=== PATIENT | male | born 1990 | race Caucasian/White ===

== ENCOUNTER 2018-06-10 08:07 | Emergency (ER) | payer BC, SELFPAY ==
[2018-06-10 08:12] VITALS: BP 146/96; PULSE 76; RESP 15; TEMP 36.8; O2SAT 98
--- NOTE | 2018-06-10 08:29 | W.ED.GENAD ---
Discharge Plan Disposition Patient Disposition: HOME Condition: Improving Discharge Details Chief Complaint: Nk/Back Pain Clinical Impression: Acute right-sided back pain with sciatica Primary Care Provider: Unknown,Unknown ED Provider: Provider,Temporary Home Meds and New Rx's Prescriptions: No Action No Known Home Meds RF: 0 Discharge Instructions Instructions: Back Pain (ED) Additional Instructions: Return for increasing numbness, weakness, change to urine pattern. Please follicle up with physical therapy as prescribed. Please take medications as prescribed. Remove the Lidoderm patch this evening. May use topical treatments as we discussed. May also take Tylenol and/or ibuprofen as needed for pain. The next dose of ibuprofen would be in 6 hours. Stand Alone Forms: Physical Therapy Referral Medical Decision Making 28-year-old male presents with fairly classic symptoms of L5-S1 sciatica. He does not have motor weakness or urinary changes. Mild subjective diminished sensation in the S1 dermatome. Otherwise unremarkable exam. Discussed with him that we will place him on a burst of steroids, he was given a parenteral dose of ketorolac in the ER, Lidoderm patch was placed. I will refer him to physical therapy. 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 Return precautions were discussed with the patient and his partner prior to discharge HPI General Mode of arrival: ambulatory. Date/Time Provider Initiated Documentation: 06/10/18 08:14. Limitations to Documentation: no limitations. Information obtained by: patient. History of Present Illness 28 year old M presents to the emergency department with the chief complaint of Right low back pain over days time, worse since driving, described as moderate, Quality is described as aching, and is localized to the back and right. Patient distal. Patient started experiencing this day(s) and it has been constant. other things that improve symptom(s), (Standing) Other factors that worsen symptoms (Sitting) . Patient notes other (No motor weakness. No change to urine). Patient did receive the following treatments prior to arrival, NSAID Related Data Home Medications Medication Instructions Recorded Confirmed Unknown [No Known Home Meds] 06/10/18 06/10/18 Allergies Allergy/AdvReac Type Severity Reaction Status Date / Time No Known Allergies Allergy Unverified 06/10/18 08:16 General Stated Complaint: Nk/Back Pain WILL: 4 Review of Systems Review of Systems 6 systems reviewed and otherwise neg PFSH Social History Smoking/Tobacco Use Status: Current every day Exam Narrative Exam Narrative: GEN: awake, alert, oriented 3. Pleasant, well groomed, interactive. HEAD: Normocephalic, atraumatic ENT: Mucous membranes moist, oropharynx unremarkable, External ear exam unremarkable EYES: PERRL, EOMI NECK: Full ROM, no SUZAN, no menigismus CHEST/RESP: Nontender, clear to auscultation bilateral, no wheeze/rhonchi/rales CARDIOVASCULAR: RRR, no murmur, rub onofre. 2+ Rad pulse bilateral ABDOMEN: Soft, nontender, no mass. +Bowel sounds Back: Right SI joint tenderness to palpation. EXT: Full ROM, no edema, no rash. Subjectively diminished sensation right lateral foot. Sensation is intact throughout. Patellar reflex 2+ bilaterally. Ankle reflex 1+ bilaterally. Plantar dorsiflexion and inversion eversion of the foot is graded 5 out of 5 bilaterally. Saddle distribution sensation intact. Neuro: Grossly normal neurologic exam, conversant, interactive. Psych: Speech fluent, thoughts congruent, affect normal Course Vital Signs Temperature 36.8 C 06/10/18 08:12 Pulse 76 06/10/18 08:12 Respiratory Rate 15 06/10/18 08:12 Blood Pressure 146/96 H 06/10/18 08:12 Pulse Oximetry 98 06/10/18 08:12 Temperature 36.8 C 06/10/18 08:12 Temperature Source Temporal Artery Scan 06/10/18 08:12 Pulse 76 06/10/18 08:12 Respiratory Rate 15 06/10/18 08:12 Respiratory Effort Non-Labored 06/10/18 08:15 Blood Pressure 146/96 H 06/10/18 08:12 Blood Pressure Position Standing 06/10/18 08:12 Pulse Oximetry 98 06/10/18 08:12 Oxygen Delivery Method Room Air 06/10/18 08:12 Oxygen Flow Rate 0 06/10/18 08:12 Pain Level 2 06/10/18 08:17
--- NOTE | 2018-06-10 08:34 | ED.GENADUL_ITS ---
Discharge Plan Disposition Patient Disposition: HOME Condition: Improving Discharge Details Chief Complaint: Nk/Back Pain Clinical Impression: Acute right-sided back pain with sciatica Primary Care Provider: Unknown,Unknown ED Provider: Provider,Temporary Home Meds and New Rx's Prescriptions: No Action No Known Home Meds RF: 0 Discharge Instructions Instructions: Back Pain (ED) Additional Instructions: Return for increasing numbness, weakness, change to urine pattern. Please follicle up with physical therapy as prescribed. Please take medications as prescribed. Remove the Lidoderm patch this evening. May use topical treatments as we discussed. May also take Tylenol and/or ibuprofen as needed for pain. The next dose of ibuprofen would be in 6 hours. Stand Alone Forms: Physical Therapy Referral Medical Decision Making 28-year-old male presents with fairly classic symptoms of L5-S1 sciatica. He does not have motor weakness or urinary changes. Mild subjective diminished sensation in the S1 dermatome. Otherwise unremarkable exam. Discussed with him that we will place him on a burst of steroids, he was given a parenteral dose of ketorolac in the ER, Lidoderm patch was placed. I will refer him to physical therapy. 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 Return precautions were discussed with the patient and his partner prior to discharge HPI General Mode of arrival: ambulatory . Date/Time Provider Initiated Documentation: 06/10/18 08:14 . Limitations to Documentation: no limitations . Information obtained by: patient . History of Present Illness 28 year old M presents to the emergency department with the chief complaint of Right low back pain over days time, worse since driving, described as moderate, Quality is described as aching, and is localized to the back and right. Patient distal. Patient started experiencing this day(s) and it has been constant. other things that improve symptom(s), (Standing) Other factors that worsen symptoms (Sitting) . Patient notes other (No motor weakness. No change to urine). Patient did receive the following treatments prior to arrival, NSAID Related Data Home Medications Medication Instructions Recorded Confirmed Unknown [No Known Home Meds] 06/10/18 06/10/18 Allergies Allergy/AdvReac Type Severity Reaction Status Date / Time No Known Allergies Allergy Unverified 06/10/18 08:16 General Stated Complaint: Nk/Back Pain WILL: 4 Review of Systems Review of Systems 6 systems reviewed and otherwise neg PFSH Social History Smoking/Tobacco Use Status: Current every day Exam Narrative Exam Narrative: GEN: awake, alert, oriented 3. Pleasant, well groomed, interactive. HEAD: Normocephalic, atraumatic ENT: Mucous membranes moist, oropharynx unremarkable, External ear exam unremarkable EYES: PERRL, EOMI NECK: Full ROM, no SUZAN, no menigismus CHEST/RESP: Nontender, clear to auscultation bilateral, no wheeze/rhonchi/rales CARDIOVASCULAR: RRR, no murmur, rub onofre. 2+ Rad pulse bilateral ABDOMEN: Soft, nontender, no mass. +Bowel sounds Back: Right SI joint tenderness to palpation. EXT: Full ROM, no edema, no rash. Subjectively diminished sensation right lateral foot. Sensation is intact throughout. Patellar reflex 2+ bilaterally. Ankle reflex 1+ bilaterally. Plantar dorsiflexion and inversion eversion of the foot is graded 5 out of 5 bilaterally. Saddle distribution sensation intact. Neuro: Grossly normal neurologic exam, conversant, interactive. Psych: Speech fluent, thoughts congruent, affect normal Course Vital Signs Temperature 36.8 C 06/10/18 08:12 Pulse 76 06/10/18 08:12 Respiratory Rate 15 06/10/18 08:12 Blood Pressure 146/96 H 06/10/18 08:12 Pulse Oximetry 98 06/10/18 08:12 Temperature 36.8 C 06/10/18 08:12 Temperature Source Temporal Artery Scan 06/10/18 08:12 Pulse 76 06/10/18 08:12 Respiratory Rate 15 06/10/18 08:12 Respiratory Effort Non-Labored 06/10/18 08:15 Blood Pressure 146/96 H 06/10/18 08:12 Blood Pressure Position Standing 06/10/18 08:12 Pulse Oximetry 98 06/10/18 08:12 Oxygen Delivery Method Room Air 06/10/18 08:12 Oxygen Flow Rate 0 06/10/18 08:12 Pain Level 2 06/10/18 08:17
[2018-06-10] MEDS: Ketorolac 30 MG/ML VIAL 60 MG IM (08:36)
[2018-06-10] MEDS: Lidocaine 5% Patch 1 PATCH TP (08:37)
== END 2018-06-10 08:46 | disposition home or self-care (01) ==
PROVIDERS: Emergency Provider Emergency Medicine
DX: M54.41 Lumbago with sciatica, right side (principal)
CPT/HCPCS: 96372; 99284; 99283

== ENCOUNTER 2019-12-04 21:52 | Outpatient (REF) | payer BC, SELFPAY ==
[2019-12-04 20:18] LABS: HCT 42.7 % (40.0-50.0); HGB 14.8 g/dL (13.5-17.5); Mean Corp. HGB Concentration 34.7 g/dL (32.0-36.0); Mean Corpuscular Hemoglobin 28.5 pg (27.0-33.0); Mean Corpuscular Volume 82.3 fL (80-95); Mean Platelet Volume 11.4 fL (8.0-11.0); RBC 5.19 m/cumm (4.50-6.00); White Blood Cell Count 2.99 k/cumm (4.4-10.8)
[2019-12-04 20:54] LABS: Platelet Count 73 x1000/uL (130-400)
[2019-12-05 11:51] LABS: Absolute Monocyte Count 0.27 k/cumm (0.11-0.7); Absolute Neutrophil Count 0.99 k/cumm (1.2-6.7); Atypical Lymphocytes % 7
[2019-12-05 11:53] LABS: Diff Comment Manual Differential; RBC Morphology Normal
[2019-12-05 14:47] LABS: Abs Immature Grans 0.03 k/cumm (0.0-0.09)
[2019-12-06 20:35] LABS: COVID-19 RT-PCR UVMMC Result Negative (Negative)
[2019-12-07 10:32] LABS: Lyme Ab w Rflx to Lyme Confirm Negative (Negative)
[2019-12-07 19:28] LABS: Anaplasma phagocytophilum Positive (Negative); B. miyamotoi PCR Negative (Negative); Babesia divergens/MO-1 Negative (Negative); Babesia duncani Negative (Negative); Babesia microti Negative (Negative); Ehrlichia chaffeensis Negative (Negative); Ehrlichia ewingii/canis Negative (Negative); Ehrlichia muris eauclairensis Negative (Negative)
== END 2019-12-04 22:12 ==
LOC: NCHCN 21:52
PROVIDERS: Visit Provider Nurse Practitioner Family
DX: R50.9 Fever, unspecified (principal)
CPT/HCPCS: 85027; 87798; U0003; 85007; 86618

== ENCOUNTER 2019-12-24 16:41 | Outpatient (REF) | payer BC, SELFPAY ==
[2019-12-24 20:50] LABS: HCT 42.3 % (40.0-50.0); HGB 14.5 g/dL (13.5-17.5); Mean Corp. HGB Concentration 34.3 g/dL (32.0-36.0); Mean Corpuscular Hemoglobin 28.6 pg (27.0-33.0); Mean Corpuscular Volume 83.4 fL (80-95); Mean Platelet Volume 9.9 fL (8.0-11.0); Platelet Count 222 x1000/uL (130-400); RBC 5.07 m/cumm (4.50-6.00); RBC Distribution Width 12.7 % (11.8-14.1); White Blood Cell Count 6.99 k/cumm (4.4-10.8)
[2019-12-24 21:36] LABS: Anion Gap 8.8 mmol/L (3-11); BUN 14 mg/dL (7-18); CO2 28.2 mmol/L (21.0-32.0); CREATININE 0.95 mg/dL (0.70-1.30); Chloride 102 mmol/L (98-107); Cholesterol 182 mg/dL (<200); Glucose 109 mg/dL (74-106); HDL Cholesterol 31 mg/dL (40-60); Sodium 139 mmol/L (136-145); Triglyceride 490 mg/dL (<150)
[2019-12-24 22:07] LABS: LDL CHOLESTEROL 109 mg/dL (<100)
== END 2019-12-24 17:01 ==
LOC: NCHCN 16:41
PROVIDERS: Visit Provider Family Medicine
DX: D72.819 Decreased white blood cell count, unspecified (principal); Z00.00 Encounter for general adult medical examination without abnormal findings; R50.9 Fever, unspecified; Z13.220 Encounter for screening for lipoid disorders
CPT/HCPCS: 80048; 80061; 83721; 85027

== ENCOUNTER 2020-09-27 08:54 | Emergency (ER) | payer OTHER, SELFPAY ==
[2020-09-27 08:59] VITALS: BP 147/84; PULSE 99; RESP 16; TEMP 36.6; O2SAT 98
--- NOTE | 2020-09-27 09:56 | ED.GENADUL_ITS ---
Discharge Plan Disposition Patient Disposition: HOME Condition: Stable Discharge Details Clinical Impression: Acute low back pain with sciatica Primary Care Provider: Michael Mosquera ED Provider: Corinna Fortune Home Meds and New Rx's Prescriptions: New methocarbamol 500 mg tablet 500 mg PO Q6H PRN (Reason: muscle spasm) Qty: 14 RF: 0 prednisone 20 mg tablet See Rx Instructions .ROUTE .COMPLEX Qty: 12 RF: 0 Discharge Instructions Instructions: Sciatica (ED), Lower Back Exercises (ED) Additional Instructions: Alternate ice and heat to the affected area(s) several times daily for 20 minutes at a time. Your prescriptions have been sent electronically to your pharmacy. Call the pharmacy to make sure your prescriptions are ready before pickup. Take the prescriptions as directed. Follow-up with your primary care doctor in 1 week. Return to the emergency department with any worsening or new concerning symptoms. Discharge Data Discharge Date/Time-TO BE ENTERED AT DEPARTURE: 09/27/20 10:34 Discharge Physician: Corinna Fortune Medical Decision Making 30-year-old male with a history of sciatica presents with left lower back pain with radiation to his left buttock and down the back of his leg to his foot for the past few days. Vitals within normal limits. Patient is standing in the room and appears slightly uncomfortable. He has tenderness palpation to his left SI joint. Back normal to inspection. Neurovascularly intact. Hypoactive reflexes throughout. Differential diagnosis includes lumbar strain, sciatica, disc herniation, spinal stenosis, arthritis, lumbar radiculopathy. Patient appears nontoxic and has no cauda equina symptoms or focal deficits. He was given an IM injection of Toradol and p.o. prednisone and Valium. Do not see an indication for labs or imaging at this time. Patient advised to alternate ice and heat. Prescriptions for methocarbamol and prednisone sent electronically to his pharmacy. Advised to follow up with the primary care doctor for re-evaluation. Usual and customary return precautions given prior to discharge. Medical Records Medical records reviewed: Yes I reviewed the patient's medical records. HPI General Mode of arrival: ambulatory . Date/Time Provider Initiated Documentation: 09/27/20 09:36 . Limitations to Documentation: no limitations . Information obtained by: patient . HPI Narrative: Patient is a 30-year-old male who presents to the ED with complaint of back pain for the past 3 days with radiation down his left leg to his foot. He does admit to intermittent tingling in his left leg and foot. 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 He states he was at urgent care for this in the past few days and was given ibuprofen and Flexeril without relief. He states his last dose of ibuprofen was 3 AM this morning without relief. He states his pain is worse with movement and most specifically when bending forward. He states the pain radiates from his left lower back into his buttock down the back of his leg to his foot. He denies any fever, abdominal pain, urinary symptoms, bowel or bladder incontinence, or leg weakness. Related Data Home Medications Medication Instructions Recorded Confirmed methocarbamol 500 mg PO Q6H PRN #14 tab 09/27/20 prednisone See Rx Instructions .ROUTE 09/27/20 .COMPLEX #12 tab Previous Rx's Medication Instructions Recorded methocarbamol 500 mg PO Q6H PRN #14 tab 09/27/20 prednisone See Rx Instructions .ROUTE 09/27/20 .COMPLEX #12 tab Allergies Allergy/AdvReac Type Severity Reaction Status Date / Time No Known Allergies Allergy Unverified 09/27/20 09:05 General Stated Complaint: Nk/Back Pain WILL: 3 Review of Systems All systems reviewed & are unremarkable except as noted in HPI and below Constitutional Constitutional: Reports as per HPI, Denies chills and Denies fever(s) Eyes Eyes: Denies blurry vision ENT Ears, Nose, Mouth, and Throat: Denies dizziness, Denies sore throat and Denies throat swelling Cardiovascular Cardiovascular: Denies chest pain and Denies dyspnea Respiratory Respiratory: Denies cough and Denies dyspnea Gastrointestinal Gastrointestinal: Denies abdominal pain, Denies diarrhea and Denies vomiting Genitourinary Genitourinary: Denies hematuria and Denies dysuria Musculoskeletal Musculoskeletal: Reports back pain and Denies numbness Integumentary/Breasts Skin/Breast: Denies lesions and Denies rash Neurologic Neurologic: Denies dizziness, Denies localized weakness and Denies numbness Allergic/Immunologic Allergic/Immunologic: Denies throat swelling [facility] Medical History (Updated 09/27/20 @ 10:21 by Corinna Fortune DO) No significant past medical history Surgical History (Updated 09/27/20 @ 10:21 by Corinna Fortune DO) No significant past surgical history Social History Smoking/Tobacco Use Status: Current every day Tobacco Type: smokeless tobacco Smoking risk assessment performed?: Yes Drug use: Never Substance use type: does not use Exam Const General: cooperative, healthy appearing and no acute distress HENMT Head: normal to inspection Face and sinus: normal facial exam Eyes General: appearance normal, both eyes and all related structures EOM: EOM intact bilaterally Neck Neck: normal visual inspection and No submandibular swelling Lymphatic: no lymphadenopathy noted Chest Chest: normal inspection of the chest and no tenderness Resp Effort & Inspection: normal respiratory effort and able to speak in complete sentences Auscultation: clear to auscultation bilaterally Cardio Rate: regular rate Rhythm: regular rhythm GI Inspection: normal to inspection Palpation: soft, not firm, not rigid and nontender Auscultation: normal bowel sounds Back/Spine/Pelvis Thoracic/Lumbar Spine: thoracic and lumbar spine normal to inspection, straight leg raise negative bilaterally and No lumbar spinal tenderness Pelvis: no pain with anterior-posterior compression Sacroiliac joints: on the left tender to palpation Sacrum: no ecchymosis, no erythema, no swelling and no tenderness Coccyx: no swelling and no tenderness Skin General skin exam: no rashes or lesions noted Neuro General: patient alert, patient awake and patient oriented x3 Cognition: normal cognition Speech: speech normal Motor: muscle tone normal throughout and strength 5/5 throughout Sensory Exam: no sensory deficits noted DTR's: Rt Patellar: 0, Lt Patellar: 0, Rt Ankle: 0 and Lt Ankle: 0 Plantar Reflexes: Equivocal: bilateral (negative babinski b/l ) Other: B/L DP/PT pulses intact. Extrem General: normal to inspection, full ROM, capillary refill normal, no calf tenderness bilaterally and no edema Psych Appearance: grossly normal Mental Status: mental status grossly normal Speech and Movement: speech and movement normal Affect: normal affect Course Vital Signs Vital signs: Vital Signs Temperature 97.9 F 09/27/20 08:59 Pulse 99 H 09/27/20 08:59 Respiratory Rate 16 09/27/20 08:59 Blood Pressure 147/84 H 09/27/20 08:59 Pulse Oximetry 98 09/27/20 08:59 Temperature 97.9 F 09/27/20 08:59 Temperature Source Skin 09/27/20 08:59 Pulse 99 H 09/27/20 08:59 Respiratory Rate 16 09/27/20 08:59 Respiratory Effort Non-Labored 09/27/20 08:59 Blood Pressure 147/84 H 09/27/20 08:59 Blood Pressure Position Sitting 09/27/20 08:59 Pulse Oximetry 98 09/27/20 08:59 Oxygen Delivery Method Room Air 09/27/20 08:59 Oxygen Flow Rate 0 09/27/20 08:59 Pain Level 6 09/27/20 09:06
[2020-09-27] MEDS: predniSONE 20 MG TAB 60 MG PO (10:08)
[2020-09-27] MEDS: Ketorolac 60 MG/2 ML VIAL IM (10:08)
[2020-09-27] MEDS: diazePAM 5 MG TAB PO (10:08)
[2020-09-27 10:35] VITALS: BP 116/51; PULSE 64; RESP 16; TEMP 36.6; O2SAT 99
== END 2020-09-27 10:34 | disposition home or self-care (01) ==
PROVIDERS: Emergency Provider Physician Assistant; PCP Internal Medicine
DX: M54.42 Lumbago with sciatica, left side (principal)
CPT/HCPCS: 96372; 99284; 99283; J1885; J7512

== ENCOUNTER 2023-02-16 16:50 | Emergency (ER) | payer BC, SELFPAY ==
[2023-02-16 16:51] VITALS: BP 134/96; PULSE 76; RESP 16; TEMP 36.4; O2SAT 99
[2023-02-16 16:52] VITALS: BP 146/95; PULSE 61; RESP 14; TEMP 36.7; O2SAT 98
[2023-02-16] MEDS: oxyCODONE 5 mg/Acetaminophen 325 mg TAB 2 TAB PO (18:00)
[2023-02-16] MEDS: predniSONE 20 MG TAB 40 MG PO (18:00)
[2023-02-16 18:04] VITALS: BP 142/7; PULSE 78; RESP 18; TEMP 36.6; O2SAT 98
--- NOTE | 2023-02-16 18:06 | NUR.NOTE ---
Nursing Note: Pt discharged by this nurse, was not the primary nurse
--- NOTE | 2023-02-16 21:58 | ED.GENADUL_ITS ---
Discharge Plan Disposition Patient Disposition: Home Discharge Details Clinical Impression: Left lumbar radiculopathy Primary Care Provider: Michael Mosquera ED Provider: Lynsey Greco Home Meds and New Rx's Prescriptions: New prednisone 20 mg tablet 40 mg PO ONCE Qty: 10 0RF Rx Instructions: take 2 tabs for 4 days take 1 tab for 4 days take 1/2 tab for 4 days oxycodone 5 mg capsule 5 mg PO Q8H PRNQty: 10 0RF Discontinued methocarbamol 500 mg tablet 500 mg PO Q6H PRN (Reason: muscle spasm) Qty: 14 0RF prednisone 20 mg tablet See Rx Instructions .ROUTE .COMPLEX Qty: 12 0RF Rx Instructions: Take 3 tabs daily for 2 days, then 2 tabs daily for 2 days, then 1 tab daily for 2 days Discharge Instructions Additional Instructions: take prednisone 40 mg for 5 days 20 mg for 4 days 10 mg for 4 days return to ED tomorrow for MRI if you are unable to schedule the outpatient MRI tomorrow take oxycodone as needed for pain return earlier with changes in bowel/bladder, groin numbness, or with any new or worsening complains Referrals: Michael Mosquera MD [Primary Care Provider] - Medical Decision Making 32-year-old gentleman presenting with lumbar radiculopathy, has weakness to the dorsiflexion, on exam, negative Babinski, DTRs and strength otherwise intact bilateral lower extremities, I suspect patient has a large herniated disc at L4- L5, his exam is inconsistent with cauda equina syndrome but I do think he needs an urgent MRI, I have ordered an outpatient MRI for tomorrow, he will return to the emergency department if he is unable to get an MRI tomorrow Pain with palpation to L for L5 region, positive straight leg raise on left, sensation intact bilateral lower extremities He has been started on prednisone and giving a small amount of oxycodone for symptom control He has no history of illicit drug use, very low suspicion for discitis or epidural abscess clinically Return precautions reviewed and patient expressed understanding HPI General Date/Time Provider Initiated Documentation: 02/16/23 17:03 . HPI Narrative: This 32-year-old male presents with left leg pain and weakness since Tuesday. States has had recurrent episodes similar to this in the past. He states he had PT and had improvement of symptoms, states this is approximately 2 years ago. He states he is having difficulty ambulating now secondary to weakness and pain. He denies any changes in bowel or bladder, he denies groin numbness. He denies any illicit drug use. States the pain is in his lower back and radiates down his leg. He denies any paresthesias. Related Data Home Medications Medication Instructions Recorded Confirmed oxycodone 5 mg capsule 5 mg PO Q8H PRN #10 caps 02/16/23 prednisone 20 mg tablet 40 mg PO ONCE #10 tabs 02/16/23 Previous Rx's Medication Instructions Recorded oxycodone 5 mg capsule 5 mg PO Q8H PRN #10 caps 02/16/23 prednisone 20 mg tablet 40 mg PO ONCE #10 tabs 02/16/23 Allergies Allergy/AdvReac Type Severity Reaction Status Date / Time No Known Allergies Allergy Unverified 09/27/20 09:05 General Stated Complaint: Orthopedic WILL: 4 PFSH All Active Problems (Updated 02/16/23 @ 17:37 by VICTOR M Mosley) Acute low back pain with sciatica (Acute) Left lumbar radiculopathy (Acute) Medical History (Updated 02/16/23 @ 17:37 by VICTOR M Mosley) No significant past medical history Surgical History (Updated 09/27/20 @ 10:21 by Corinna Fortune DO) No significant past surgical history Social History Smoking/Tobacco Use Status: Current every day Tobacco Type: smokeless tobacco Smoking risk assessment performed?: Yes Drug use: Never Substance use type: does not use Course Vital Signs Vital signs: Vital Signs Temperature 36.4 C L 02/16/23 16:51 Pulse 76 02/16/23 16:51 Respiratory Rate 16 02/16/23 16:51 Blood Pressure 134/96 H 02/16/23 16:51 Pulse Oximetry 99 02/16/23 16:51 Temperature 36.6 C 02/16/23 18:04 Temperature Source Skin 02/16/23 16:52 Pulse 78 02/16/23 18:04 Respiratory Rate 18 02/16/23 18:04 Blood Pressure 142/7 H 02/16/23 18:04 Blood Pressure Position Sitting 02/16/23 16:52 Pulse Oximetry 98 02/16/23 18:04 Oxygen Delivery Method Room Air 02/16/23 16:52 Oxygen Flow Rate 0 02/16/23 16:52 Pain Level 6 02/16/23 16:52 Comment ice, tylenol and ibuprofen 02/16/23 16:52
== END 2023-02-16 18:09 | disposition home or self-care (01) ==
PROVIDERS: Emergency Provider Physician Assistant; PCP Internal Medicine
DX: M54.16 Radiculopathy, lumbar region (principal); F17.290 Nicotine dependence, other tobacco product, uncomplicated
CPT/HCPCS: 99283; 99282; J7512

== ENCOUNTER 2023-02-17 08:22 | Emergency (ER) | payer BC, SELFPAY ==
[2023-02-17 08:27] VITALS: BP 142/80; PULSE 82; RESP 18; TEMP 36.9; O2SAT 98
--- NOTE | 2023-02-17 09:15 | ED.GENADUL_ITS ---
Discharge Plan Disposition Patient Disposition: Home Condition: Stable Discharge Details Clinical Impression: Foot drop, left, Herniated lumbar intervertebral disc Primary Care Provider: Michael Mosquera ED Provider: Ian Frost Home Meds and New Rx's Prescriptions: No Action acetaminophen 500 mg Tablet 325 mg PO PRN PRN Discharge Instructions Instructions: Lumbar Disc Herniation (ED) Additional Instructions: Avoid activities that worsen pain or symptoms. Continue steroid as prescribed. Please take ibuprofen over the counter. Take 600mg by mouth every 6 hours as needed for pain. Please follow-up with your primary care physician. Please follow-up with orthopedic customer energy specialist. Return to the ER immediately for any worsening or new concerning symptoms. Referrals: Aris Pemberton DO [OSTEOPATHIC DOCTOR] - Michael Mosquera MD [Primary Care Provider] - Discharge Data Discharge Date/Time-TO BE ENTERED AT DEPARTURE: 02/17/23 12:46 Medical Decision Making 32-year-old male here with progressively worsening low back pain and associated left foot drop over the past 2 days. No specific trauma. No history of IV drug use. Patient is afebrile and hemodynamically stable. I reviewed medical record from ED visit yesterday: 32-year-old gentleman presenting with lumbar radiculopathy, has weakness to the dorsiflexion, on exam, negative Babinski, DTRs and strength otherwise intact bilateral lower extremities, I suspect patient has a large herniated disc at L4-L5, his exam is inconsistent with cauda equina syndrome but I do think he needs an urgent MRI, I have ordered an outpatient MRI for tomorrow, he will return to the emergency department if he is unable to get an MRI tomorrow Pain with palpation to L for L5 region, positive straight leg raise on left, sensation intact bilateral lower extremities. No change in exam from yesterday. Concern for severe disc herniation vs mass. Plan to proceed with MRI of the lumbar spine to assess for acute surgical pathology. [id number] --received call back from neurosurgeon with Dr. Mendez at [facility] [place], Dr. Mendez recommends outpatient follow-up if symptoms persist, recommends oral steroid and may benefit from steroid injection and suggested referral to Dr. Pemberton. All results were discussed with the patient. After discharge with outpatient follow-up. HPI General Mode of arrival: ambulatory . Date/Time Provider Initiated Documentation: 02/17/23 08:24 . Limitations to Documentation: no limitations . Information obtained by: patient . HPI Narrative: 32-year-old male presents with chief complaint of left low back pain with associated left foot drop. Patient notes back pain has been present for the past 2 weeks. He does not recall any specific injury. Pain increased gradually over this time. Pain is now severe. Worse with sitting. He states he developed foot drop about 1 day ago. Patient was seen here last night and MRI was recommended. MRI was not available and he was advised to return for MRI. Patient is no associated bowel or bladder dysfunction. He has tingling paresthesias in his left leg but no numbness. No history of IV drug use. Related Data Home Medications Medication Instructions Recorded Confirmed acetaminophen 500 mg tablet 325 mg PO PRN PRN 02/24/23 03/02/23 Allergies Allergy/AdvReac Type Severity Reaction Status Date / Time No Known Allergies Allergy Unverified 03/02/23 12:11 General Stated Complaint: Nk/Back Pain WILL: 3 Review of Systems All systems reviewed & are unremarkable except as noted in HPI and below Constitutional Constitutional: Denies fever(s) Neurologic Neurologic: Reports as per HPI PFSH All Active Problems Acute low back pain with sciatica (Acute) Left lumbar radiculopathy (Acute) Foot drop, left (Acute) Herniated lumbar intervertebral disc (Acute) Medical History 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 Leukopenia No significant past medical history Surgical History No significant past surgical history Social History Smoking/Tobacco Use Status: Current every day Tobacco Type: smokeless tobacco Smoking risk assessment performed?: Yes Drug use: Never Substance use type: does not use Exam Const General: cooperative and no acute distress HENMT Head: normocephalic and atraumatic Mouth: moist mucous membranes Eyes Conjunctivae: normal conjunctivae Sclera: normal sclerae EOM: EOM intact bilaterally Back/Spine/Pelvis Back: No mass, No erythema, No warmth and No ecchymosis Thoracic/Lumbar Spine: paraspinal tenderness (low lumbar ), No thoracic spinal tenderness and No lumbar spinal tenderness Neuro General: patient alert, patient awake and tone normal Cognition: normal cognition Motor: strength abnormal (left foot drop, weakness of dorsiflexion at left ankle) Sensory Exam: no sensory deficits noted and other (no saddle anesth) Course Vital Signs Vital signs: Vital Signs Temperature 36.9 C 02/17/23 08:27 Pulse 82 02/17/23 08:27 Respiratory Rate 18 02/17/23 08:27 Blood Pressure 142/80 H 02/17/23 08:27 Pulse Oximetry 98 02/17/23 08:27 Temperature 36.9 C 02/17/23 08:27 Temperature Source Oral 02/17/23 08:27 Pulse 82 02/17/23 08:27 Respiratory Rate 18 02/17/23 08:27 Respiratory Effort Normal, Non-Labored 02/17/23 08:36 Blood Pressure 142/80 H 02/17/23 08:27 Blood Pressure Position Sitting 02/17/23 08:27 Pulse Oximetry 98 02/17/23 08:27 Oxygen Delivery Method Room Air 02/17/23 08:27 Oxygen Flow Rate 0 02/17/23 08:27 Pain Level 6 02/17/23 08:27 PAWSS Have you Been Recently Intoxicated or Drunk Within the Last 30 days?: No Have you Ever Experienced Previous Episodes of Alcohol Withdrawal?: No Have you ever Experienced Withdrawal Seizures?: No Have you ever Experienced Delirium Tremens(DT)s?: No Have you ever undergone Alcohol Rehabilitation Treatment (i.e, inpt ot outpatient treatment programs)?: No Have you ever Experienced Blackouts?: No Have you ever Combined Alcohol with other Downers within the last 90 days?: No Have you ever Combined Alcohol with any other Substance of Abuse during the last 90 days?: No Positive Blood Alcohol level on Presentation? [PCS.BAL]: No Evidence of Increased Autonomic Activity (i.e. HR>120, tremor, sweating, agitation, nausea)?: No Result: 0
[2023-02-17] MEDS: Ibuprofen 600 MG TAB PO (09:16)
--- NOTE | 2023-02-17 11:10 | DI.MRI_ITS ---
Exam(s) MR LUMBAR SPINE WO EXAM: MR LUMBAR SPINE WO CLINICAL HISTORY: left foot drop acute, low back pain. TECHNIQUE: Multiplanar multisequence MRI of the Lumbar spine was performed. COMPARISON: There are no plain films available time this MRI interpretation. FINDINGS: Five lumbar vertebrae are presumed. Conus medullaris is at normal level. There is no evidence of conus mass nor subjacent clumping of in trathecal nerve roots to suggest arachnoiditis. The distal thecal sac appears unremarkable.There is no evidence of Tarlov intrasacral cysts nor other significant findings within the sacral canal Bones:There are no fractures nor ominous osseous lesions in the lumbar vertebral bodies and visualize d sacrum. With respect to the individual levels... T11-T12: There is a left paracentral disc herniation at this level evident on the sagittal images. H owever the size of this protrusion is difficult to accurately assess as this level was not scanned in the axial plane T12-L1: Normal disc height and signal. However, there is a prominent posterolateral right disc protr usion at this level which extends posteriorly 9 mm occupying the right lateral recess. This disc pro trusion is approximately 1.5 cm wide. Significantly indents the right-side of the thecal sac at this level. It does not extend appreciably into the exiting right neural foramen. There is no foraminal stenosis on either side at this level. Central osseous canal dimensions are within normal limits. Facets unremarkable. L1-2: Normal disc height and signal. No disc herniation nor central canal stenosis.No foraminal steno sis. No facet arthropathy. L2-3: There is moderate disc height loss. There is a Schmorl's node invagination in the inferior end plate of L2. Posteriorly there is a posterior central-right paracentral disc herniation which extend s posteriorly 4 mm and is approximately 1 cm wide. This indents the anterior right side of the theca l sac at this level. Disc herniation does not extend into the exiting neural foramina. There is no foraminal stenosis on either side at this level. The disc protrusion does extend caudally for additi on sub 3 mm behind the right-side of the L3 vertebral body. Osseous central canal dimensions are wit hin normal limits. Facet joints unremarkable. L3-4: Normal disc height. No disc herniation or central canal stenosis.No foraminal stenosis.No face t arthropathy. L4-5: No disc height. However, there is a large posterolateral left disc protrusion which occupies t he left lateral recess. Disc protrusion extends posteriorly 10 mm and is 1.7 cm wide. It indents th e anterior left side of the thecal sac and nerve roots at this level. This disc herniation does not extend appreciably into the exiting left neural foramen. There is no foraminal stenosis on either si de at this level. No osseous central canal dimensions are within normal limits at this level. Facet joints unremarkable. L5-S1: Relatively preserved disc height at this level. There is broad annular bulging, slightly more so on the left side. Central canal dimensions are within normal limits. There is an element of susi ateral foraminal stenosis at this level due to the annular bulging extending into the exiting neural foramina. On the right side there is also an element of mild vertical foraminal stenosis as there is slightly asymmetric disc height loss on the right side at this level. Less so on the left side. Fa cet joints unremarkable at this level. Soft tissues: paraspinal soft tissues appear unremarkable. IMPRESSION: 1. There are multilevel significant disc herniations here as described individually above. 2. The most prominent disc herniation is posterolateral left at L4-5 level. However, there is also a prominent right sided disc herniation at T12-L1 as well as a smaller disc herniation at L2-3 level. Also findings at L5-S1 as described above. 3. There is also a disc herniation at T11-T12 level seen on the uppermost aspect of the sagittal sequ ence. However, this level was above the level of the top axial images obtained. Report called by myself to physician DATA REPOSITORY:
[2023-02-17 12:48] VITALS: BP 147/77; PULSE 68; RESP 20; O2SAT 99
--- NOTE | 2023-02-18 10:22 | CMPROGNOTE_ITS ---
Date of service: 02/18/23 Time of Service: 10:22 Care Management Progress Note Progress Note Text Progress Note Text: CM sent referral to Arjun's PCP, Michael Mosquera MD at [facility]; requesting referral from PCP to [facility] pain clinic for Arjun to see Dr. Pemberton for left foot drop/lumbar radiculopathy, per report. Expedited referral requested from [facility] pain clinic; CM informed PCP office.
--- NOTE | 2023-02-18 10:22 | PDOC.CMPRO ---
Date of service: 02/18/23 Time of Service: 10:22 Care Management Progress Note Progress Note Text Progress Note Text: CM sent referral to Arjun's PCP, Michael Mosquera MD at [facility]; requesting referral from PCP to [facility] pain clinic for Arjun to see Dr. Pemberton for left foot drop/lumbar radiculopathy, per report. Expedited referral requested from [facility] pain clinic; CM informed PCP office.
== END 2023-02-17 12:46 | disposition home or self-care (01) ==
PROVIDERS: Emergency Provider Student in an Organized Health Care Education/Training Program; PCP Internal Medicine
DX: M51.16 Intervertebral disc disorders with radiculopathy, lumbar region; M21.372 Foot drop, left foot
CPT/HCPCS: 99284; 72148

== ENCOUNTER 2023-03-02 11:54 | Outpatient (CLI) | payer BC, SELFPAY ==
--- NOTE | 2023-03-02 06:00 | DI.RAD_ITS ---
Exam(s) XR PAIN CLINIC LUMBAR SP 2V EXAM: XR PAIN CLINIC LUMBAR SP 2V CLINICAL HISTORY: DX: Lumbar Radiculopathy TECHNIQUE: 2D and realtime digital imaging was performed. CONTRAST MATERIAL: Refer to procedure report. COMPARISON: No exams were available for comparison FINDINGS: Fluoroscopy was provided for Dr. Pemberton during the performance of a lumbar spine injection. Please re alivia to the procedure report for complete details. Ka,r=6.96 mGy IMPRESSION:
[2023-03-02 12:03] VITALS: BP 145/92; PULSE 72; RESP 20; TEMP 36.8; O2SAT 97
[2023-03-02] MEDS: Omnipaque 240 MG/ML 50 ML BTL IJ (12:47)
[2023-03-02] MEDS: methylPREDNISolone ACETATE 80 MG/ML VIAL IJ (12:48)
[2023-03-02 12:54] VITALS: BP 145/91; PULSE 73; RESP 16; O2SAT 100
--- NOTE | 2023-03-02 12:56 | PDOC.PAIN ---
Date of service: 03/02/23 Time of Service: 12:56 Pain Managment Procedure Note Procedure Note Procedure Note: PROCEDURE NOTE LUMBAR EPIDURAL STEROID INJECTION Date of Service: March 02, 2023 Patient:Arjun Johns? Provider: Micah Lisa DO, MPH Arjun Davis has been referred to the [facility] for a lumbar epidural steroid injection. Pre-operative diagnosis: Lumbosacral Radiculopathy Post-operative diagnosis: Same Pre-Procedure Pain: VAS= 5 /10 Comments: [facility] by Abigail Bush APRN. I spoke to Ms. Bush on the phone last week and she recommended this procedure. I did review the patient's lumbar spine MRI and evaluated him before the procedure. He does have compression on the left L5 nerve root and a left foot drop. Arjun was interviewed and the medical record was reviewed.? There were no medical, pharmacologic, radiographic or other structural contraindications to attempting fluoroscopically guided Lumbar epidural steroid injection.? Risks, potential side effects, indications, and potential benefits of the procedure were reviewed with Arjun.? Questions and concerns were addressed.? After it was clear that Arjun was fully informed about the procedure, the printed consent form was signed by the patient and myself.? Arjun was placed in the prone position on the fluoroscopy table and automated blood pressure cuff and pulse oximeter applied. The skin entry point for entering/approaching the epidural space for the lumbar epidural steroid injection was marked. Following thorough chlorhexadine preparation of the skin and draping and 1% lidocaine infiltration of the skin entry point and subcutaneous tissues, an 18 gauge Touhy needle was placed and advanced under fluoroscopic guidance and with loss of resistance technique into the L5-S1 epidural space. Needle tip placement and depth were aided and confirmed by fluoroscopy. There was no paresthesia or return of blood or CSF through the needle. 1 mls of Omnipaque 240 was injected with clear epidural spread confirmed with fluoroscopy. 80 mg of Depo-Medrol was? injected. This was followed by 5 cc of preservative-free normal saline and 1 ml of preservative-free normal saline to flush the steroid out of the needle. There was no unusual discomfort expressed by Arjun. The needle was withdrawn without difficulty. (49 mls of Omnipaque was wasted) Arjun was observed and was without hemodynamic, neurologic, or allergic reactions.? Fluoroscopic images were digitally archived. Arjun's vital signs were stable throughout the procedure and were as recorded in nursing records. Follow up plans and appointments were discussed with Arjun. Post procedure instruction was given as documented in nursing records and having met discharge criteria Arjun was [facility] from the [facility]. COMMENTS: No apparent complications. Post-procedure pain: VAS= 3/10. Arjun to contact [facility] as needed. If at least 50% improvement in pain and/or function for at least 3 months is achieved, this procedure can be repeated. I did refer him to PT and gave him a copy of the Treat Your Own Back by Jarrod Ibanez. He is going to follow up by phone in 1 week. I personally performed this entire procedure. MICAH LISA DO, MPH ABPMR-subspecialty board certification in Pain Medicine [facility]
== END 2023-03-02 11:55 | disposition home or self-care (01) ==
LOC: PC 11:55
PROVIDERS: PCP Family Medicine; Visit Provider Preventive Medicine Occupational Medicine
DX: M54.17 Radiculopathy, lumbosacral region (principal)
CPT/HCPCS: 62323; 72100; J1040; Q9967

== ENCOUNTER 2023-04-01 18:29 | Outpatient (REF) | payer BC, SELFPAY ==
[2023-04-01 14:43] LABS: HCT 47.5 % (40.0-50.0); HGB 15.9 g/dL (13.5-17.5); MCH 28.5 pg (27.0-33.0); MCHC 33.5 % (32.0-36.0); MCV 85 fL (80-95); MPV 9.7 fL (8.0-11.0); Platelet Count 221 10^3/uL (130-400); RBC 5.58 10^6/uL (4.36-5.78); RDW 11.9 % (11.8-14.1); RDW-SD 36.3 fL; WBC 7.68 10^3/uL (4.4-10.8)
[2023-04-01 15:13] LABS: ALT 69 U/L (16-63); AST 21 U/L (15-37); Albumin 4.7 g/dL (3.4-5.0); Alkaline Phosphatase 81 U/L (46-116); BUN 14 mg/dL (7-18); Bilirubin, Total 0.4 mg/dL (0.2-1.0); CREATININE 0.8 mg/dL (0.70-1.30); Calcium 9.8 mg/dL (8.5-10.1); Calculated LDL 142 mg/dL (<100); Chloride 102 mmol/L (98-107); Cholesterol 213 mg/dL (<200); Glucose 101 mg/dL (74-106); HDL Cholesterol 48 mg/dL (40-60); Potassium 4.5 mmol/L (3.5-5.1); Sodium 141 mmol/L (136-145); Total Protein 7.9 g/dL (6.4-8.2); Triglyceride 116 mg/dL (<150)
== END 2023-04-01 18:30 | disposition home or self-care (01) ==
LOC: NCHCN 18:29
PROVIDERS: PCP Family Medicine; Visit Provider Family Medicine
DX: Z01.818 Encounter for other preprocedural examination (principal)
CPT/HCPCS: 80053; 80061; 85027

== ENCOUNTER 2024-07-27 15:55 | Outpatient (REF) | payer BC, OTHER, SELFPAY ==
[2024-07-27 21:24] LABS: Calculated LDL 86 mg/dL (<100); Cholesterol 197 mg/dL (<200); HDL Cholesterol 43 mg/dL (40-60); Triglyceride 341 mg/dL (<150)
== END 2024-07-27 15:56 | disposition home or self-care (01) ==
LOC: NCHCN 15:55
PROVIDERS: PCP Family Medicine; Visit Provider Family Medicine
DX: E78.5 Hyperlipidemia, unspecified (principal)
CPT/HCPCS: 80061